=== PATIENT | male | born 1950 | race Caucasian/White ===

== ENCOUNTER 2017-12-25 21:25 | Inpatient (IN) | payer MEDICARE ==
[~2017-12-25] VITALS: Ht 180.3 cm; Wt 86.6 kg
[2017-12-25] MEDS ORDERED: IBUPROFEN 600 MG TAB PO STA (22:28)
[2017-12-25 23:23] LABS: BASOPHILS # (AUTO) 0.1 (0.0-0.1); BASOPHILS % 0.4 % (0.0-1.0); HEMATOCRIT 41.5 % (38.2-49.6); HEMOGLOBIN 14.2 g/dL (14.0-18.0); LYMPHOCYTES # (AUTO) 1.1 (1.0-3.2); LYMPHOCYTES % 6.4 % (18.0-39.1); MEAN CORPUSCULAR HEMOGLOBIN 32.3 pg (28-32); MEAN CORPUSCULAR HGB CONC 34.2 g/dL (31-35); MEAN CORPUSCULAR VOLUME 94.5 fL (81-99); MONOCYTES # (AUTO) 1.6 (0.2-0.8); MONOCYTES % 9.6 % (4.4-11.3); NEUTROPHILS # (AUTO) 14.1 (2.1-6.9); NEUTROPHILS % 83.2 % (38.7-80.0); PLATELET COUNT 273 x10e3/uL (140-360); RED BLOOD COUNT 4.39 x10e6/uL (4.3-5.7); RED CELL DISTRIBUTION WIDTH 14.4 % (11.7-14.4)
[2017-12-25 23:44] LABS: ALANINE AMINOTRANSFERASE 19 IU/L (0-55); ALBUMIN 3.6 g/dL (3.5-5.0); ALBUMIN/GLOBULIN RATIO 0.8 (0.8-2.0); ALKALINE PHOSPHATASE 73 IU/L (40-150); ANION GAP 19.8 mmol/L (8-16); BLOOD UREA NITROGEN 15 mg/dL (7-26); BUN/CREATININE RATIO 14 (6-25); CALCIUM 9.4 mg/dL (8.4-10.2); CARBON DIOXIDE 23 mmol/L (22-29); CHLORIDE 98 mmol/L (98-107); EST GLOMERULAR FILTRATION RATE > 60 ML/MIN (60-); GLUCOSE 110 mg/dL (74-118); POTASSIUM 4.8 mmol/L (3.5-5.1); SODIUM 136 mmol/L (136-145)
[2017-12-25] MEDS ORDERED: SODIUM CHLORIDE 0.9% 1000ML 1,000 ML IV SCH (23:45)
[2017-12-26] VITALS (9 sets, daily range): BP systolic 129–164; BP diastolic 62–75
--- NOTE | 2017-12-26 00:08 | Diagnostic Imaging Report ---
CHEST 2 VIEWS, Technique: CHEST 2 VIEWS Comparison: 07/12/2008 Clinical history: Fever x3 days DISCUSSION: Limited lordotic AP and lateral views. Stable cardiomediastinal silhouette. Vague right peripheral mid lung opacity. Trace right pleural effusion or thickening. IMPRESSION: Right lung pneumonia. Recommend 6-8 week follow-up upright PA and lateral to document resolution. Signed by: Dr Laura Madrigal MD on 12/26/2017 12:04 AM
[2017-12-26] MEDS ORDERED: CRESTOR10 MG PO (00:20)
[2017-12-26] MEDS ORDERED: LORAZEPAM0.5 MG PO (00:20)
[2017-12-26] MEDS ORDERED: AMLODIPINE BESY10 MG PO (00:20)
[2017-12-26] MEDS ORDERED: CLOPIDOGREL75 MG PO (00:20)
[2017-12-26] MEDS ORDERED: BUPROPION XL300 MG PO (00:20)
[2017-12-26] MEDS ORDERED: PAROXETINE HCL20 MG PO (00:20)
[2017-12-26] MEDS ORDERED: PANTOPRAZOLE SO40 MG PO (00:20)
[2017-12-26] MEDS ORDERED: ULTRAM 50MG50 MG PO (00:20)
[2017-12-26] MEDS ORDERED: LEVOFLOXACIN 500MG/D5W 100ML 100 ML IV ONE (00:30)
[2017-12-26] MEDS ORDERED: CEFTRIAXONE SOD 1 GM VIAL IM ONE (00:30)
[2017-12-26] MEDS ORDERED: ASPIRIN 81 MG CHEW TAB PO ONE (00:45)
[2017-12-26] MEDS ORDERED: LEVOFLOXACIN 750MG/DEXTROSE PREMIX BAG 150ML IV SCH (00:45)
[2017-12-26 01:19] LABS: CLARITY,URINE CLEAR (CLEAR); COLOR,URINE YELLOW (YELLOW); LEUKOCYTE ESTERASE ,URINE NEGATIVE (NEGATIVE); NITRITE,URINE NEGATIVE (NEGATIVE)
[2017-12-26 01:20] LABS: BILIRUBIN,URINE NEGATIVE (NEGATIVE); KETONES,URINE TRACE (NEGATIVE); PROTEIN,URINE DIPSTICK NEGATIVE (NEGATIVE); URINE UROBILINOGEN 1 mg/dL (0.2 - 1)
[2017-12-26 01:28] LABS: EPITHELIAL CELLS,URINE FEW /LPF; RBC,URINE 21-50 /HPF (0-5)
[2017-12-26 01:29] LABS: BACTERIA,URINE MODERATE /HPF; MUCUS,URINE MODERATE (RARE)
[2017-12-26] MEDS: SODIUM CHLORIDE 0.9% 1000ML 1,000 ML IV SCH ×2 (01:45→12:48)
[2017-12-26] MEDS ORDERED: ACETAMINOPHEN 325 MG TAB PO ONE (06:00)
[2017-12-26 08:15] LABS: CREATINE KINASE MB 0.8 ng/mL (0-5.0)
[2017-12-26] MEDS ORDERED: TRAMADOL HCL 50 MG TAB PO PRN (09:00)
[2017-12-26] MEDS ORDERED: SIMVASTATIN 40 MG TAB PO SCH (09:00)
--- NOTE | 2017-12-26 09:31 | Consultation ---
DATE OF CONSULTATION: December 26, 2017 PULMONARY CONSULTATION Patient of Dr. Coon and Dr. Lavell Kurtz. The patient was admitted with a history of fever of 3 days as high as 102 and confusion. [place] he was in a fog. No history of [place]. History of coronary disease with stents. History of peptic ulcer disease with bleeding. History of hypertension. Musician. Ex-smoker and smoked 2 packs a day for 30 years. Born in [place]. FAMILY HISTORY: Noncontributory. HOME MEDICATIONS: Have included amlodipine, Plavix, lorazepam, Protonix, Paxil, Crestor, tramadol, and bupropion. PHYSICAL EXAMINATION GENERAL: He is a well-developed white male in no acute distress. VITALS: Temperature 100.4, pulse 80, respirations 20, blood pressure 137/74. HEENT: Head is normocephalic and atraumatic. LUNGS: Rhonchi right greater than left. HEART: Regular rhythm. ABDOMEN: Nontender. EXTREMITIES: Some muscle wasting noted of the lower extremities. IMPRESSION 1. Urinary tract infection. 2. Pneumonia. 3. Vague infiltrate on PA and more obvious on lateral. Check CT of chest. Culture urine. Empiric antibiotics. Low-dose bronchodilators. Thank you for this kind referral. Job#: [id number] CHRIST
[2017-12-26] MEDS: AMLODIPINE BESYLATE 10 MG TAB PO SCH (10:02)
[2017-12-26] MEDS: CLOPIDOGREL BISULFATE 75 MG TAB PO SCH (10:02)
[2017-12-26] MEDS: PAROXETINE HCL 20 MG TAB PO SCH (10:02)
[2017-12-26] MEDS: PANTOPRAZOLE SOD 40 MG TABEC PO SCH (10:02)
[2017-12-26 11:53] LABS: AMYLASE 25 U/L (25-125); LIPASE 6 U/L (8-78)
--- NOTE | 2017-12-26 12:07 | History and Physical ---
CLINICAL HISTORY: This is a 67-year-old white male known to me from previous evaluation admitted via the emergency room because of right-sided pneumonia with sepsis. This patient's family doctor is Dr. Coon. He apparently has been sick for 2-1/2 days with fever and rigors. The family thought he was having a viral infection and, therefore, did not bring him to the hospital. Gradually, he had altered mental status, very weak, unable to get around very well. He was brought to the emergency room and was found to have right-sided pneumonia and admitted for further evaluation and treatment. PAST MEDICAL HISTORY: Remarkable for upper intestinal bleeding, epigastric pain, coronary artery disease status post stenting around 2005, hypertension, reflux esophagitis, pancreatitis, knee surgery, cervical arthritis. MEDICATIONS AT HOME: Include: 1. Bupropion XL 300 mg p.o. daily. 2. Amlodipine 10 mg p.o. daily. 3. Clopidogrel 75 mg p.o. daily. 4. Lorazepam 0.5 mg p.o. t.i.d. p.r.n. anxiety. 5. Pantoprazole 40 mg p.o. daily. 6. Paroxetine 20 mg p.o. daily. 7. Rosuvastatin 10 mg p.o. daily. 8. Tramadol 50 mg p.o. daily. PERSONAL AND SOCIAL HISTORY: Denies smoking or drinking. He was in the [employer] business. FAMILY HISTORY: Noncontributory. REVIEW OF SYSTEMS: Negative. PHYSICAL EXAMINATION GENERAL: He is weak. For the most part, alert and coherent. CARDIOVASCULAR: Jugular veins are not distended. S1, S2 are regular. There is no appreciable murmur. RESPIRATORY: Clear. ABDOMEN: Soft. Bowel sounds are present. EXTREMITIES: No cyanosis, clubbing or edema. IMPRESSION 1. Right-sided pneumonia with sepsis. 2. History of upper gastrointestinal bleeding with epigastric pain and reflux esophagitis. 3. History of coronary artery disease, status post coronary stenting in approximately 2005. 4. Hypertension. 5. Anxiety. 6. History of pancreatitis. 7. History of right knee surgery and cervical arthritis. 8. Hyperlipidemia. RECOMMENDATIONS: Pulmonary consultation. He has seen Dr. Mckeon in the past. Intravenous antibiotics. Job#: [id number] cc:JACKI COON MD
[2017-12-26] MEDS: ACETAMINOPHEN 325 MG TAB PO PRN (13:00)
[2017-12-26] MEDS: LORAZEPAM 0.5 MG TAB PO PRN (14:41)
[2017-12-26] MEDS: IPRATROPIUM BROMIDE 0.02% 2.5 ML NEB NEB SCH ×2 (15:12→20:30)
--- NOTE | 2017-12-26 15:42 | Diagnostic Imaging Report ---
PROCEDURE: CT ABDOMEN AND PELVIS WITHOUT CONTRAST TECHNIQUE: The abdomen and pelvis were scanned utilizing a multidetector helical scanner from the diaphragm to the lesser trochanter after the oral administration of water. No IV contrast was administered per protocol. Coronal and sagittal multiplanar reformations were obtained. COMPARISON: None. INDICATIONS: HEMATURIA FINDINGS: ABSENCE OF INTRAVENOUS CONTRAST DECREASES SENSITIVITY FOR DETECTION OF FOCAL LESIONS AND VASCULAR PATHOLOGY. LOWER THORAX: Small right pleural effusion with associated mild right lower lobe compressive atelectasis. Small fat-containing posterior left diaphragmatic hernia. Atherosclerotic calcification of the coronary arteries. HEPATOBILIARY: Borderline low attenuation of the hepatic parenchyma, likely reflecting mild steatosis. No focal lesions. No biliary ductal dilation. At least 2 radiopaque stones are noted in the gallbladder lumen, which measure approximately 1.1 and 1.0 cm. No wall thickening or pericholecystic fluid. SPLEEN: No splenomegaly. PANCREAS: No focal masses or ductal dilatation. ADRENALS: Mild thickening of bilateral adrenal glands. KIDNEYS/URETERS: No renal or ureteral calculi, hydronephrosis, or obstruction. Mild nonspecific bilateral perinephric stranding. No contour abnormalities. PELVIC ORGANS/BLADDER: No bladder calculi, wall thickening, or focal lesions. Prostate and seminal vesicles are unremarkable. PERITONEUM / RETROPERITONEUM: No free air or fluid. LYMPH NODES: No lymphadenopathy. VESSELS: Atherosclerotic calcification of the abdominal aorta and iliac vessels. GI TRACT: No bowel dilation or evidence of obstruction. Appendix is well identified and normal in caliber. BONES AND SOFT TISSUES: No aggressive lytic lesions. Generalized osteopenia. Degenerative disc changes in the lumbosacral spine. 8mm focal sclerotic lesion in the L1 vertebral body (series 3, image 40), has a nonaggressive appearance and likely represents a bone island. The soft tissues are grossly unremarkable. IMPRESSION: 1. no renal, ureteral, or bladder calculi. No hydronephrosis or obstruction. No focal bladder lesions or wall thickening. 2. Mild bilateral nonspecific perinephric stranding. 3. Small right pleural effusion with associated mild right lower lobe compressive atelectasis. 4. Cholelithiasis, without CT evidence of cholecystitis. Felipe Jones M.D. Dictated by: Felipe Jones M.D. on 12/26/2017 at 15:46 Electronically approved by: Felipe Jones M.D. on 12/26/2017 at 15:46
[2017-12-26] MEDS: LOSARTAN POTASSIUM 25 MG TAB PO SCH ×2 (16:54→17:09)
--- NOTE | 2017-12-26 16:54 | Diagnostic Imaging Report ---
PROCEDURE: CT CHEST WITHOUT CONTRAST CT scan of the chest WITHOUT intravenous contrast, using standard protocol. TECHNIQUE: The chest was scanned utilizing a multidetector helical scanner from the apex to the level of the adrenal glands. No IV contrast was administered per physician's request. Coronal and sagittal multiplanar reformations were obtained. COMPARISON: Patients [facility], , CHEST 2 VIEWS, 12/25/2017, 22:33. INDICATIONS: PNEUMONIA FINDINGS: Lines/tubes: None. Lungs and Airways: Consolidation with air bronchograms involving the posterolateral aspect of the right upper lobe against the major fissure (series 3, image 50), with associated ground glass opacities extending into the superior aspect (series 3, image 31) and medial aspect (series 3, image 52). Focal groundglass opacities are also noted at the right apex (series 3, image 19). The Mild compressive atelectasis of the right lower lobe. No other consolidation or opacities. Calcified granuloma in the posterior right lower lobe (series 3, image 85). No nodules or masses. Airways are clear, without endobronchial lesions. Pleura: small right pleural effusion. Heart and mediastinum: Thyroid is unremarkable. Heart size is normal. Atherosclerotic calcification of the aortic valve, coronary arteries, and to a lesser degree thoracic aortic arch. Aorta is non-aneurysmal. Main pulmonary artery is normal in caliber. Lymph nodes: Mildly enlarged subcarinal lymph node which measures 1.2 cm in short axis (series 2, image 61). Enlarged right upper paratracheal lymph node, which measures 1.4 cm in short axis, however, has a normal fatty hilum. No other adenopathy. Abdomen: Limited views of the upper abdomen show no abnormality within the visualized spleen, and adrenal glands. Diffuse hepatic steatosis. Bones and soft tissues: No aggressive lytic lesions. Small fat-containing left posterior diaphragmatic hernia (series 2, image 108 and sagittal image 91). IMPRESSION: 1. Findings consistent with right upper lobe pneumonia, in the appropriate clinical setting. 2. Small right pleural effusion, which may be parapneumonic, with associated mild right lower lobe compressive atelectasis. 3. Reactive mediastinal adenopathy. 4. Diffuse hepatic steatosis. Felipe Jones M.D. Dictated by: Felipe Jones M.D. on 12/26/2017 at 16:57 Electronically approved by: Felipe Jones M.D. on 12/26/2017 at 16:57
[2017-12-26] MEDS ORDERED: ACETAMINOPHEN 325 MG SUPP PR PRN (17:00)
[2017-12-26] MEDS ORDERED: ACETAMINOPHEN 650 MG SUPP PR PRN (17:15)
[2017-12-26 17:21] LABS: CREATINE KINASE MB 1.2 ng/mL (0-5.0)
[2017-12-26] MEDS: HEPARIN SOD (PORCINE) 5,000 UNIT/ML VIAL SC SCH (21:00)
[2017-12-26] MEDS: SIMVASTATIN 20 MG TAB PO SCH (21:25)
[2017-12-26] MEDS: LEVOFLOXACIN 750MG/DEXTROSE PREMIX BAG 150ML IV SCH (23:00)
[2017-12-27] VITALS (7 sets, daily range): BP systolic 150–170; BP diastolic 78–85
[2017-12-27 02:00] LABS: CREATINE KINASE MB 0.7 ng/mL (0-5.0)
[2017-12-27] MEDS: SODIUM CHLORIDE 0.9% 1000ML 1,000 ML IV SCH ×3 (04:24→14:24)
[2017-12-27] MEDS: IPRATROPIUM BROMIDE 0.02% 2.5 ML NEB NEB SCH ×3 (06:58→21:04)
[2017-12-27 07:10] LABS: ALANINE AMINOTRANSFERASE 20 IU/L (0-55); ALBUMIN 2.6 g/dL (3.5-5.0); ALKALINE PHOSPHATASE 61 IU/L (40-150); BLOOD UREA NITROGEN 8 mg/dL (7-26); BUN/CREATININE RATIO 12 (6-25); CALCIUM 8.3 mg/dL (8.4-10.2); CARBON DIOXIDE 23 mmol/L (22-29); CHLORIDE 96 mmol/L (98-107); CREATININE, SERUM 0.69 mg/dL (0.72-1.25); EST GLOMERULAR FILTRATION RATE > 60 ML/MIN (60-); GLUCOSE 108 mg/dL (74-118)
[2017-12-27 07:24] LABS: ALBUMIN/GLOBULIN RATIO 0.8 (0.8-2.0); ANION GAP 12.1 mmol/L (8-16)
[2017-12-27 07:27] LABS: POTASSIUM 3.1 mmol/L (3.5-5.1); SODIUM 128 mmol/L (136-145)
[2017-12-27] MEDS: LOSARTAN POTASSIUM 25 MG TAB PO SCH (08:57)
[2017-12-27] MEDS: AMLODIPINE BESYLATE 10 MG TAB PO SCH (08:57)
[2017-12-27] MEDS: PANTOPRAZOLE SOD 40 MG TABEC PO SCH (08:57)
[2017-12-27] MEDS: CLOPIDOGREL BISULFATE 75 MG TAB PO SCH (08:57)
[2017-12-27] MEDS: PAROXETINE HCL 20 MG TAB PO SCH (08:57)
[2017-12-27] MEDS: HEPARIN SOD (PORCINE) 5,000 UNIT/ML VIAL SC SCH ×2 (09:01→21:00)
[2017-12-27] MEDS: LORAZEPAM 0.5 MG TAB PO PRN ×2 (12:15→20:30)
--- NOTE | 2017-12-27 12:30 | Consultation ---
DATE OF CONSULTATION: December 26, 2017 UROLOGIC CONSULTATION Consultation was called by Dr. Kurtz for Dr. Maher for whom I am covering. CHIEF UROLOGIC COMPLAINT/REASON FOR CONSULTATION: Hematuria. HISTORY PRESENT ILLNESS: Mr. Lundberg is a 67-year-old male admitted to the hospital for right pneumonia. He was found to have microscopic hematuria, recurrent. A urologic consultation was requested this. The patient denied gross hematuria. Denied difficulty urinating. Has been told he has enlarged prostate previously. Has nocturia 2 to 3 times per night. Has had some incontinence. PAST MEDICAL HISTORY: Notable for GI bleeds, coronary artery disease status post stenting in 2005, degenerative joint disease, hypertension, gastroesophageal reflux disease, reflux esophagitis, pancreatitis. MEDICATIONS: Please see MAR. Most notable for Plavix. ALLERGIES: NKDA. SOCIAL HISTORY: No smoking or drinking. FAMILY HISTORY: No urologic stones or malignancies. REVIEW OF SYSTEMS: Noncontributory to the 12-point review of systems. PHYSICAL EXAMINATION GENERAL: Elderly male in no acute distress. VITALS: Temperature 99.6, pulse 65, respirations 18, blood pressure 146/74. HEENT: Sclera nonicteric. NECK: Supple. BACK: Without costovertebral angle tenderness bilaterally. ABDOMEN: Soft, nontender, nondistended. No palpable mass. No palpable hernias. No palpable lymphadenopathy. : Normal male external genitalia. EXTREMITIES: No edema. NEURO: Alert. PSYCH: Mood appropriate. SKIN: Intact. Normal color. PERTINENT LABORATORY DATA: Sodium 136, potassium 4.8, chloride 98, bicarb 23, BUN 15, creatinine 1.1, glucose 110. Hemoglobin 14, hematocrit 42, platelet count 272,000, white cell count 16,900. Urinalysis 21 to 50 reds, 6 to 10 whites. IMPRESSION 1. Microscopic hematuria. 2. Urinary tract infection. 3. BPH. 4. Medically induced coagulopathy. 5. Hypertension. PLAN: Patient has been begun on broad-spectrum antibiotics. Will adjust to culture-specific antibiotics as data is available. Urologically the patient would benefit from outpatient uroflowmetry as well as cystoscopy for evaluation of microscopic hematuria. Thank you for allowing us to participate in the care of your patient. We will be happy to follow along with you. Job#: [id number] KIKE
[2017-12-27] MEDS ORDERED: POTASSIUM CHLORIDE 20 MEQ TAB CR PO ONE (14:00)
[2017-12-27] MEDS: ACETAMINOPHEN 325 MG TAB PO PRN ×2 (19:55→20:30)
[2017-12-27] MEDS: SIMVASTATIN 20 MG TAB PO SCH (21:24)
[2017-12-27] MEDS: LEVOFLOXACIN 750MG/DEXTROSE PREMIX BAG 150ML IV SCH (23:28)
[2017-12-28] VITALS: BP 120/71
[2017-12-28] MEDS: SODIUM CHLORIDE 0.9% 1000ML 1,000 ML IV SCH ×4 (00:24→20:37)
[2017-12-28 04:00] VITALS: BP 143/73
[2017-12-28] MEDS: IPRATROPIUM BROMIDE 0.02% 2.5 ML NEB NEB SCH ×3 (06:35→23:00)
[2017-12-28 07:24] LABS: BASOPHILS % 0.3 % (0.0-1.0); HEMATOCRIT 38.6 % (38.2-49.6); HEMOGLOBIN 13.5 g/dL (14.0-18.0); LYMPHOCYTES # (AUTO) 0.6 (1.0-3.2); MEAN CORPUSCULAR HEMOGLOBIN 31.5 pg (28-32); MONOCYTES # (AUTO) 1.5 (0.2-0.8); MONOCYTES % 16.3 % (4.4-11.3); NEUTROPHILS # (AUTO) 6.8 (2.1-6.9); PLATELET COUNT 294 x10e3/uL (140-360); RED BLOOD COUNT 4.29 x10e6/uL (4.3-5.7)
[2017-12-28 08:09] VITALS: BP 139/77
[2017-12-28] MEDS: ACETAMINOPHEN 325 MG TAB PO PRN (08:20)
[2017-12-28] MEDS: LORAZEPAM 0.5 MG TAB PO PRN ×3 (08:20→22:31)
[2017-12-28] MEDS: PAROXETINE HCL 20 MG TAB PO SCH (08:53)
[2017-12-28] MEDS: CLOPIDOGREL BISULFATE 75 MG TAB PO SCH (08:53)
[2017-12-28] MEDS: HEPARIN SOD (PORCINE) 5,000 UNIT/ML VIAL SC SCH ×2 (08:53→20:37)
[2017-12-28] MEDS: AMLODIPINE BESYLATE 10 MG TAB PO SCH (08:53)
[2017-12-28] MEDS: LOSARTAN POTASSIUM 25 MG TAB PO SCH (08:53)
[2017-12-28] MEDS: PANTOPRAZOLE SOD 40 MG TABEC PO SCH (08:53)
[2017-12-28 11:53] VITALS: BP 122/64
[2017-12-28 13:57] LABS: BLOOD UREA NITROGEN 11 mg/dL (7-26); BUN/CREATININE RATIO 16 (6-25); CALCIUM 8.6 mg/dL (8.4-10.2); CARBON DIOXIDE 27 mmol/L (22-29); CHLORIDE 102 mmol/L (98-107); EST GLOMERULAR FILTRATION RATE > 60 ML/MIN (60-); GLUCOSE 105 mg/dL (74-118); SODIUM 137 mmol/L (136-145)
[2017-12-28] MEDS ORDERED: POTASSIUM CHLORIDE 20 MEQ TAB CR PO ONE (14:00)
[2017-12-28] MEDS ORDERED: SODIUM CHLORIDE 452MG TAB PO ONE (14:00)
[2017-12-28 16:16] VITALS: BP 134/70
[2017-12-28 20:00] VITALS: BP 134/65
[2017-12-28] MEDS: SIMVASTATIN 20 MG TAB PO SCH (20:37)
[2017-12-28] MEDS: LEVOFLOXACIN 750MG/DEXTROSE PREMIX BAG 150ML IV SCH (23:38)
[2017-12-29] VITALS: BP 142/72
[2017-12-29 01:42] VITALS: BP 142/72
[2017-12-29 04:00] VITALS: BP 149/75
[2017-12-29 05:20] LABS: BASOPHILS # (AUTO) 0.1 (0.0-0.1); BASOPHILS % 0.7 % (0.0-1.0); EOSINOPHILS # (AUTO) 0.1 (0.0-0.4); EOSINOPHILS % 0.8 % (0.0-6.0); HEMATOCRIT 36.1 % (38.2-49.6); HEMOGLOBIN 12.5 g/dL (14.0-18.0); LYMPHOCYTES # (AUTO) 0.9 (1.0-3.2); LYMPHOCYTES % 11.8 % (18.0-39.1); MEAN CORPUSCULAR HEMOGLOBIN 31.3 pg (28-32); MEAN CORPUSCULAR HGB CONC 34.6 g/dL (31-35); MEAN CORPUSCULAR VOLUME 90.3 fL (81-99); MONOCYTES # (AUTO) 1.1 (0.2-0.8); MONOCYTES % 14.5 % (4.4-11.3); NEUTROPHILS # (AUTO) 5.5 (2.1-6.9); NEUTROPHILS % 71.4 % (38.7-80.0); PLATELET COUNT 310 x10e3/uL (140-360)
[2017-12-29 05:38] LABS: ANION GAP 10.1 mmol/L (8-16); BLOOD UREA NITROGEN 9 mg/dL (7-26); BUN/CREATININE RATIO 12 (6-25); CALCIUM 8.3 mg/dL (8.4-10.2); CARBON DIOXIDE 28 mmol/L (22-29); CHLORIDE 102 mmol/L (98-107); CREATININE, SERUM 0.73 mg/dL (0.72-1.25); EST GLOMERULAR FILTRATION RATE > 60 ML/MIN (60-); GLUCOSE 109 mg/dL (74-118); POTASSIUM 3.1 mmol/L (3.5-5.1); SODIUM 137 mmol/L (136-145)
[2017-12-29] MEDS: IPRATROPIUM BROMIDE 0.02% 2.5 ML NEB NEB SCH (07:00)
[2017-12-29 07:05] VITALS: BP 152/83
[2017-12-29 07:32] VITALS: BP 152/83
[2017-12-29] MEDS: PAROXETINE HCL 20 MG TAB PO SCH (09:24)
[2017-12-29] MEDS: PANTOPRAZOLE SOD 40 MG TABEC PO SCH (09:24)
[2017-12-29] MEDS: LOSARTAN POTASSIUM 25 MG TAB PO SCH (09:24)
[2017-12-29] MEDS: CLOPIDOGREL BISULFATE 75 MG TAB PO SCH (09:24)
[2017-12-29] MEDS: AMLODIPINE BESYLATE 10 MG TAB PO SCH (09:24)
[2017-12-29] MEDS: HEPARIN SOD (PORCINE) 5,000 UNIT/ML VIAL SC SCH (09:25)
[2017-12-29] MEDS ORDERED: POTASSIUM CHLORIDE 20 MEQ TAB CR PO STA (10:45)
[2017-12-29] MEDS ORDERED: POTASSIUM CHLORIDE 20 MEQ TAB CR PO SCH (11:00)
[2017-12-29 11:21] VITALS: BP 159/77
[2017-12-29] MEDS ORDERED: COZAAR25 MG PO (11:29)
[2017-12-29] MEDS ORDERED: LEVAQUIN500 MG PO (11:29)
--- NOTE | 2017-12-29 13:17 | Discharge Summary ---
CLINICAL HISTORY: This is a 67-year-old white man admitted via emergency room because of right pneumonia, urinary tract infection, sepsis, hematuria, and hyponatremia. Serum sodium 129. Please refer to my previous dictations concerning details of current illness, past medical history, personal and social history, family history, review of systems, physical examination, and initial laboratory studies. HOSPITAL COURSE: The patient was treated with intravenous levofloxacin. Pulmonary consultation was obtained with Dr. Mckeon. consultation was obtained Dr. Moreno. The patient's hyponatremia and hypokalemia were corrected. White count came down to 7000. They were anxious for discharge to be followed with Dr. 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 He was discharged on Levaquin 750 mg p.o. daily for an additional 3 days. He will see Dr. Bella in 1 week. Because he says he is no longer smoking and Wellbutrin was given to him a year ago for discontinuing cigarette smoking, we decided that Wellbutrin can be discontinued. He is taking losartan 25 mg per day. Other medications are the same. DISCHARGE DIAGNOSES 1. Right-sided pneumonia. 2. Urinary tract infection. 3. Microhematuria. 4. Hypokalemia and hyponatremia. 5. Hypertension. 6. Anxiety. 7. History of pancreatitis. 8. Hyperlipidemia. 9. History of right knee surgery and cervical neck arthritis. 10. History of gastroesophageal bleeding, epigastric pain and reflux esophagitis. 11. History of coronary artery disease, status post coronary stenting approximately in 2005. ISRAEL CHAVEZ MD Job#: [id number] RI cc:JACKI BELLA MD
[2017-12-29] MEDS ORDERED: LEVOFLOXACIN 750MG/D5W 150ML 150 ML IV SCH (23:00)
== END 2017-12-29 14:00 | disposition home or self-care (01) | DRG 871 ==
LOC: ER 21:25 → ERHOLD 12-26 00:32 → IMCU 12-26 02:12 → OBSVTOIN 12-26 17:02 → MED/SURG3 12-26 20:51
PROVIDERS: ADMIT Internal Medicine Cardiovascular Disease; ATTEND Internal Medicine Cardiovascular Disease
DX: A41.9 Sepsis, unspecified organism (principal); J18.9 Pneumonia, unspecified organism; N39.0 Urinary tract infection, site not specified; E87.1 Hypo-osmolality and hyponatremia; R31.9 Hematuria, unspecified; E87.6 Hypokalemia; I10 Essential (primary) hypertension; F41.9 Anxiety disorder, unspecified; E78.5 Hyperlipidemia, unspecified; K21.0 Gastro-esophageal reflux disease with esophagitis; I25.10 Atherosclerotic heart disease of native coronary artery without angina pectoris; Z95.5 Presence of coronary angioplasty implant and graft; R41.82 Altered mental status, unspecified; N40.0 Benign prostatic hyperplasia without lower urinary tract symptoms; Z87.891 Personal history of nicotine dependence; J44.9 Chronic obstructive pulmonary disease, unspecified; Z87.19 Personal history of other diseases of the digestive system; Z28.21 Immunization not carried out because of patient refusal; Z79.02 Long term (current) use of antithrombotics/antiplatelets
CPT/HCPCS: 36415; 71046; 71250; 74176; 80048; 80053; 81001; 82140; 82150; 82550; 82553; 83605; 83690; 84484; 85025; 87040; 87086; 94640; 96361; 99284; J0696; J1644; J1956; J7030

== ENCOUNTER → 2018-02-11 | Outpatient (CLI) | payer MEDICARE ==
[~2018-02-11] MED LIST: AMLODIPINE BESY10 MG PO; BUPROPION XL300 MG PO; CLOPIDOGREL75 MG PO; COZAAR25 MG PO; CRESTOR10 MG PO; LEVAQUIN500 MG PO; LORAZEPAM0.5 MG PO; PANTOPRAZOLE SO40 MG PO; PAROXETINE HCL20 MG PO; ULTRAM 50MG50 MG PO
--- NOTE | 2018-02-11 17:28 | Diagnostic Imaging Report ---
PROCEDURE: Frontal and lateral views of the chest. COMPARISON: Chest radiograph 12/26/2017, chest CT 12/26/2017 INDICATIONS: FALL, RIGHT SIDE RIB PAIN FINDINGS: Lines/tubes: None. Lungs: The lungs are well inflated. A 2.2 cm opacity in the right upper lobe may represent sequela of the right upper lobe pneumonia noted on chest CT 12/26/2017. There is no evidence of pulmonary edema. Pleura: There is no pleural effusion or pneumothorax. Heart and mediastinum: The heart and the mediastinum are normal. Bones: No acute bony abnormality. Please refer to same day rib series for rib findings. IMPRESSION: Right upper lobe opacity may represent the sequela of the right upper lobe pneumonia noted on chest CT 12/26/2017. Recommend follow up chest radiograph in 8-12 weeks to document stability/resolution. Dictated by: Ryne Brown M.D. on 02/11/2018 at 17:34 Electronically approved by: Ryne Brown M.D. on 02/11/2018 at 17:34
--- NOTE | 2018-02-11 17:37 | Diagnostic Imaging Report ---
PROCEDURE:X-RAY UNILATERAL RIBS WITH CHEST X-RAY COMPARISON:None. INDICATIONS:FALL RIGHT SIDE RIB PAIN FINDINGS: Minimally displaced right 7th rib fracture anteriorly. Multiple additional old healed rib fractures. Normal mineralization. Soft tissues are unremarkable. Please refer to same day chest radiograph for non-bony findings including a right upper lobe opacity. CONCLUSION: Minimally displaced anterior right 7th rib fracture. Dictated by: Ryne Brown M.D. on 02/11/2018 at 17:42 Electronically approved by: Ryne Brown M.D. on 02/11/2018 at 17:42
== END ==
LOC: RAD 16:36
PROVIDERS: ATTEND Surgery
DX: S22.31XA Fracture of one rib, right side, initial encounter for closed fracture (principal)
CPT/HCPCS: 71046; 71101

== ENCOUNTER → 2020-07-05 | Outpatient (CLI) | payer MEDICARE | LOC: RAD 15:37 | PROVIDERS: ATTEND Family Medicine | DX: U07.1 COVID-19 (principal) | CPT/HCPCS: 71046 ==